=== PATIENT | female | born 1990 | race African-American/Black ===

== ENCOUNTER 2020-07-23 14:05 | Emergency (ER) | payer SELFPAY ==
[~2020-07-23] VITALS: Ht 152.4 cm; Wt 90.9 kg
[2020-07-23 15:56] VITALS: BP 155/93
[2020-07-23] MEDS ORDERED: ACET1TAB33 PO (16:23)
--- NOTE | 2020-07-23 16:23 | ED.ADGEN ---
Past Medical History Past Medical History: No Pertinent History Past Surgical History: No Surgical History Smoking Status: Never Smoker Alcohol Use: None General Adult EDM: Chief Complaint: DENTAL PROBLEM HPI: HPI: Patient is a 29 year old AA female who presents emergency department with complaints of right upper abdominal pain for the last 2 weeks. Patient states that her wisdom tooth is coming in has caused her pain. She reports that last week on Wednesday she was seen at [facility] and prescribed amoxicillin. Patient states she has been taking the amoxicillin for the last 6 days. She denies any improvement in her pain. Patient denies any fever, cough, nausea, vomiting, diarrhea, abdominal pain, body aches, fatigue, or rash. She currently rates pain a 10 out of 10 on the pain scale, patient reports that she has tried taking Tylenol and ibuprofen at home with no relief of her discomfort. She also tried taking one of her mother's tramadol with no relief of her pain. Patient reports that the pain radiates to her right ear. She denies any decreased hearing, ringing in her ear, or drainage from her ear. Review of Systems: Review of Systems: Complete ROS is negative unless otherwise noted in HPI. Physical Exam: PE: See Above Constitutional: Well developed, well nourished, no acute distress, non-toxic appearance. [] HENT: Normocephalic, atraumatic, bilateral external ears normal, bilateral TMs normal, nose normal; no visible or palpable dental abscess in the right upper quadrant, wisdom tooth visible coming in at an angle towards the other teeth] Eyes: PERRLA, EOMI, conjunctiva normal, no discharge. [] Neck: Normal range of motion, supple, nontender, no stridor. [] Cardiovascular:Heart rate regular rhythm Lungs & Thorax: Respirations even and unlabored, no retractions, no respiratory distress Skin: Warm, dry, no erythema, no rash. [] Extremities: No cyanosis, ROM intact, no edema. [] Neurologic: Alert and oriented X 3, no focal deficits noted. [] Psychologic: Affect normal, judgement normal, mood normal. [] Current Patient Data: Vital Signs: Vital Signs Date Time Temp Pulse Resp B/P (MAP) Pulse Ox O2 Delivery O2 Flow Rate FiO2 07/23/20 14:55 98.9 79 16 151/99 (116) 98 Room Air 98.9 EKG: EKG: [] Heart Score: C/O Chest Pain: No Risk Scores: Score 0 - 3: 2.5% MACE over next 6 weeks - Discharge Home Score 4 - 6: 20.3% MACE over next 6 weeks - Admit for Clinical Observation Score 7 - 10: 72.7% MACE over next 6 weeks - Early Invasive Strategies Radiology/Procedures: Radiology/Procedures: [] Course & Med Decision Making: Course & Med Decision Making Pertinent Labs and Imaging studies reviewed. (See chart for details) [] Dragon Disclaimer: Dragon Disclaimer: This electronic medical record was generated, in whole or in part, using a voice recognition dictation system. Departure Departure Impression: Primary Impression: Dentalgia Disposition: HOME / SELF CARE / HOMELESS Condition: STABLE Referrals: NO PCP (PCP) Patient Instructions: Dental Pain, [id number] Additional Instructions: Continue taking the antibiotics as prescribed by [facility]. Fill the prescription and take as directed for severe pain only, follow-up with your dentist as planned, return to the ER if symptoms worsen or fever develops. Scripts Acetaminophen With Codeine (ACETAMINOPHEN-COD #3 TABLET) 1 Each Tablet 1 TAB PO Q8HRS PRN for PAIN for 3 Days, #9 TAB 0 Refills Prov: DURGA CRAMER PELT SHEARER 07/23/20 DURGA CRAMER PELT SHEARER Jul 23, 2020 16:23
== END 2020-07-23 16:38 | disposition home or self-care (01) ==
LOC: ER 14:05
DX: K08.89 Other specified disorders of teeth and supporting structures (principal)
CPT/HCPCS: 99283